=== PATIENT | male | born 1970 | race Hispanic/Latino ===

== ENCOUNTER 2024-04-24 11:58 | Inpatient (IN) | payer SELFPAY ==
[2024-04-24 12:14] LABS: #Basophils Less than 0.03 10x3/uL (0.0-0.2); #Eosinophils Less than 0.03 10x3/uL (0.0-0.7); %Basophils 0.1 % (0.0-1.0); %Eosinophils 0.2 % (0.0-10.0); %Lymphocytes 26.5 % (21.0-51.0); %Monocytes 3.7 % (0.0-10.0); %Neutrophils 69.1 % (42.0-75.0); Hematocrit 42.6 % (42.0-52.0); Hemoglobin 14.7 g/dL (14.0-18.0); Mean Corpuscular HGB CONC 34.5 g/dL (32.0-36.0); Mean Corpuscular Hemoglobin 31.7 pg (27.0-31.0); Mean Corpuscular Volume 91.8 fL (78.0-98.0); Mean Platelet Volume 10.3 fL (7.4-10.4); Platelet Count 250 10x3/uL (130-400); RBC Distribution Width 12.4 % (11.5-14.5); Red Blood Cell (RBC) Count 4.64 mill/uL (4.70-6.10)
[2024-04-24 12:29] LABS: INR-International Normal Ratio 1.1; Prothrombin Time 14.4 sec (12.0-14.7)
[2024-04-24 12:36] LABS: ALT (SGPT) 14 U/L (8-55); AST (SGOT) 19 U/L (5-34); Albumin 4.4 g/dL (3.5-5.0); Alkaline Phosphatase 97 U/L (40-110); Anion Gap 17 mmol/L (10-20); BUN (Urea Nitrogen) 20 mg/dL (8.4-25.7); Bilirubin, Total 0.9 mg/dL (0.2-1.2); Calc. Creatinine Clearance 0 mL/min (70-130); Calcium 9.4 mg/dL (7.8-10.44); Carbon Dioxide 19 mmol/L (22-29); Chloride 108 mmol/L (98-107); Estimated GFR 70; Globulin 3.3 g/dL (2.4-3.5); Glucose 149 mg/dL (70-105); Lipase 31 U/L (8-78); Potassium 5.3 mmol/L (3.5-5.1); Protein, Total 7.7 g/dL (6.0-8.3); Sodium 139 mmol/L (136-145)
[2024-04-24 12:39] LABS: Troponin I Less than 0.010 ng/mL (< 0.028)
[2024-04-24 12:43] LABS: PTT 141.5 sec (22.9-36.1)
[2024-04-24] MEDS ORDERED: PHENYLEPHRINE-NS 100 MCG/ML 10 ML SYRINGE ONE (12:50)
[2024-04-24] MEDS ORDERED: Atropine Sulfate 1 mg/10 ml Syringe ONE (12:50)
[2024-04-24] MEDS ORDERED: Iopamidol 370 76% 100 ML VIAL ONE (13:07)
[2024-04-24] MEDS ORDERED: Ondansetron PF 4 MG/2 ML Vial ONE (13:07)
[2024-04-24] MEDS ORDERED: Morphine 4 MG/ML VIAL ONE (13:24)
[2024-04-24] MEDS ORDERED: TICAGRELOR 90 MG TABLET ONE (13:51)
[2024-04-24] MEDS ORDERED: Morphine 2 MG/ML VIAL SLOW IVP PRN (14:38)
[2024-04-24] MEDS ORDERED: Mag-Al 1200 mg/1200 mg/30 ML UDCUP PO PRN (14:40)
[2024-04-24] MEDS ORDERED: Acetaminophen/Codeine 30-300mg Tablet PO PRN (14:40)
[2024-04-24] MEDS ORDERED: Zolpidem Tartrate 5 MG TAB PO PRN (14:40)
[2024-04-24] MEDS ORDERED: Milk Of Magnesia 30 ML UDCUP PO PRN (14:40)
[2024-04-24 14:51] VITALS: BMI 25.8
[2024-04-24] MEDS: TICAGRELOR 90 MG TABLET PO SCH ×2 (15:07→19:19)
[2024-04-24 16:02] LABS: Troponin I 0.626 ng/mL (< 0.028)
[2024-04-24] MEDS: Nitroglycerin 0.4 MG TAB (25 Tab Bottle) SL PRN (19:18)
[2024-04-24] MEDS: Atorvastatin Calcium 40 MG TAB PO SCH (19:19)
[2024-04-24] MEDS: Metoprolol Tartrate 25 MG TAB PO SCH (19:19)
[2024-04-25 05:06] LABS: #Basophils Less than 0.03 10x3/uL (0.0-0.2); %Basophils 0.1 % (0.0-1.0); %Eosinophils 1.3 % (0.0-10.0); %Lymphocytes 28.2 % (21.0-51.0); %Monocytes 7.4 % (0.0-10.0); %Neutrophils 62.7 % (42.0-75.0); Hematocrit 41.6 % (42.0-52.0); Hemoglobin 14.5 g/dL (14.0-18.0); Mean Corpuscular HGB CONC 34.9 g/dL (32.0-36.0); Mean Corpuscular Hemoglobin 32.4 pg (27.0-31.0); Mean Corpuscular Volume 92.9 fL (78.0-98.0); Platelet Count 226 10x3/uL (130-400); RBC Distribution Width 12.7 % (11.5-14.5); Red Blood Cell (RBC) Count 4.48 mill/uL (4.70-6.10)
[2024-04-25 06:21] LABS: ALT (SGPT) 17 U/L (8-55); AST (SGOT) 57 U/L (5-34); Albumin 3.8 g/dL (3.5-5.0); Alkaline Phosphatase 86 U/L (40-110); Anion Gap 13 mmol/L (10-20); BUN (Urea Nitrogen) 12 mg/dL (8.4-25.7); Bilirubin, Total 0.8 mg/dL (0.2-1.2); Calc. Creatinine Clearance 97 mL/min (70-130); Carbon Dioxide 20 mmol/L (22-29); Chloride 109 mmol/L (98-107); Cholesterol 158 mg/dl (< 200 Desired); Estimated GFR 94; Glucose 108 mg/dL (70-105); HDL Cholesterol 40 mg/dL (>60 Neg Risk); LDL Cholesterol, Calculated 101 mg/dL; Protein, Total 6.8 g/dL (6.0-8.3); Sodium 138 mmol/L (136-145); Triglycerides 85 mg/dL (Less than 150)
[2024-04-25] MEDS: Aspirin 81 mg Enteric Coated Tablet PO SCH (08:37)
[2024-04-25] MEDS: Lisinopril 2.5 MG TAB PO SCH (08:37)
[2024-04-25] MEDS: FLU (Fluarix Triv) TS24-25(6MOS UP)/PF 45 MCG/0.5 ML Syringe IM ONE (08:39)
[2024-04-25] MEDS ORDERED: Glucagon 1 MG/ML KIT IM PRN (10:40)
[2024-04-25] MEDS ORDERED: Insulin Lispro 100 UNIT/ML 10 ML VIAL SC PRN ×2 (10:40)
[2024-04-25] MEDS ORDERED: Dextrose 50% Abboject 50 ML SYRINGE SLOW IVP PRN (10:40)
[2024-04-25] MEDS ORDERED: Dextrose 5% in Water 1,000 ML IV PRN (10:40)
[2024-04-25 10:54] LABS: Hemoglobin A1c 5.6 % (4.0-6.0)
[2024-04-26 03:54] VITALS: TEMP 98
[2024-04-26 08:14] VITALS: BP 106/67
[2024-04-26] MEDS: Clopidogrel Bisulfate 300 MG TAB PO SCH (10:23)
[2024-04-27] MEDS ORDERED: Clopidogrel Bisulfate 75 MG TAB PO SCH (09:00)
== END 2024-04-26 11:48 | disposition home or self-care (01) | DRG 322 ==
LOC: ERS 11:58 → CCL 12:14 → CCU 14:23 → OBS 04-25 09:31
PROVIDERS: ADMIT Internal Medicine Cardiovascular Disease; ATTEND Family Medicine
PROC: 4A023N7 Measurement of Cardiac Sampling and Pressure, Left Heart, Percutaneous Approach (ICD-10-PCS; principal; 2024-04-24)
PROC: 027034Z Dilation of Coronary Artery, One Artery with Drug-eluting Intraluminal Device, Percutaneous Approach (ICD-10-PCS; 2024-04-24)
PROC: B2111ZZ Fluoroscopy of Multiple Coronary Arteries using Low Osmolar Contrast (ICD-10-PCS; 2024-04-24)
PROC: B2151ZZ Fluoroscopy of Left Heart using Low Osmolar Contrast (ICD-10-PCS; 2024-04-24)
DX: I21.19 ST elevation (STEMI) myocardial infarction involving other coronary artery of inferior wall (principal); E78.00 Pure hypercholesterolemia, unspecified; F17.210 Nicotine dependence, cigarettes, uncomplicated; E78.5 Hyperlipidemia, unspecified; I25.10 Atherosclerotic heart disease of native coronary artery without angina pectoris; E11.9 Type 2 diabetes mellitus without complications; Z98.890 Other specified postprocedural states; Z83.3 Family history of diabetes mellitus
CPT/HCPCS: 36415; 36416; 80053; 80061; 83036; 83690; 84484; 85025; 85347; 85610; 85730; 92941; 93005; 93010; 93306; 93458; 93798; 94760; 99285; C1769; C1874; C1887; C1894; C9606; J0461; J2272; J2405; Q9967